=== PATIENT | female | born 1945 | race Caucasian/White ===

== ENCOUNTER 2019-03-05 13:26 | Outpatient (CLI) | payer MEDICARE, BC ==
[~2019-03-05] VITALS: Ht 152.4 cm; Wt 62.3 kg
[2019-03-05 14:12] LABS: BASOPHILS # (AUTO) 0.03 x10^3/uL (0-0.1); BASOPHILS % (AUTO) 0 % (0-1); EOSINOPHILS # (AUTO) 0.12 x10^3/uL (0-0.4); EOSINOPHILS % (AUTO) 2 % (1-7); LYMPHOCYTES # (AUTO) 2.06 x10^3/uL (1-3.4); LYMPHOCYTES % (AUTO) 29 % (22-44); MD NO; MEAN CORPUSCULAR HEMOGLOBIN 29.8 pg (27.0-34.8); MEAN CORPUSCULAR VOLUME 90.1 fL (80-100); MEAN PLATELET VOLUME 8.2 fL (7.4-10.4); MONOCYTES # (AUTO) 0.47 x10^3/uL (0.2-0.8); MONOCYTES % (AUTO) 7 % (2-9); NEUTROPHILS # (AUTO) 4.41 x10^3/uL (1.8-6.8); NEUTROPHILS % (AUTO) 62 % (42-75); PLATELET COUNT 269 x10^3/uL (130-400); RED BLOOD COUNT 4.84 x10^6/uL (3.82-5.3); RED CELL DISTRIBUTION WIDTH 13.6 % (9.6-15.2)
[2019-03-05] MEDS ORDERED: LEVO175T2 PO (14:14)
[2019-03-05] MEDS ORDERED: ESTR1TAB15 PO (14:14)
[2019-03-05] MEDS ORDERED: CLOP75TA PO (14:14)
[2019-03-05] MEDS ORDERED: LIOT5TAB11 PO (14:14)
[2019-03-05] MEDS ORDERED: IBUP1TAB11 PO (14:14)
[2019-03-05 14:21] LABS: CREATININE 0.74 mg/dL (0.55-1.02); INTERNATIONAL NORMALIZED RATIO 0.91 (0.93-1.1); PROTHROMBIN TIME 9.6 Seconds (9.6-11.5)
== END 2019-03-05 23:59 | disposition home or self-care (01) ==
LOC: STAR 13:26
PROVIDERS: ATTEND Surgery
DX: Z01.810 Encounter for preprocedural cardiovascular examination (principal); I35.1 Nonrheumatic aortic (valve) insufficiency; I73.9 Peripheral vascular disease, unspecified; Z79.01 Long term (current) use of anticoagulants
CPT/HCPCS: 36415; 82565; 84520; 85025; 85610; 85730

== ENCOUNTER → 2019-03-23 | Outpatient (CLI) | payer MEDICARE, BC ==
[~2019-03-23] MED LIST: CLOP75TA PO; ESTR1TAB15 PO; IBUP1TAB11 PO; LEVO175T2 PO; LIOT5TAB11 PO; LISI-167 PO
[2019-03-23 15:19] LABS: BASOPHILS # (AUTO) 0.02 x10^3/uL (0-0.1); BASOPHILS % (AUTO) 0 % (0-1); EOSINOPHILS # (AUTO) 0.14 x10^3/uL (0-0.4); EOSINOPHILS % (AUTO) 2 % (1-7); LYMPHOCYTES # (AUTO) 1.86 x10^3/uL (1-3.4); LYMPHOCYTES % (AUTO) 30 % (22-44); MD NO; MEAN CORPUSCULAR HEMOGLOBIN 29.8 pg (27.0-34.8); MEAN CORPUSCULAR HGB CONC 33.5 g/dL (32.4-35.8); MEAN CORPUSCULAR VOLUME 88.9 fL (80-100); MEAN PLATELET VOLUME 8.3 fL (7.4-10.4); MONOCYTES # (AUTO) 0.51 x10^3/uL (0.2-0.8); MONOCYTES % (AUTO) 8 % (2-9); NEUTROPHILS # (AUTO) 3.68 x10^3/uL (1.8-6.8); NEUTROPHILS % (AUTO) 59 % (42-75); PLATELET COUNT 255 x10^3/uL (130-400); RED BLOOD COUNT 4.85 x10^6/uL (3.82-5.3); RED CELL DISTRIBUTION WIDTH 13.3 % (9.6-15.2)
[2019-03-23 15:27] LABS: ALANINE AMINOTRANSFERASE 28 U/L (12-78); ALBUMIN 3.6 g/dL (3.4-5.0); ANION GAP 5 mmol/L (5-15); CALCIUM 9.6 mg/dL (8.5-10.1); CHLORIDE 111 mmol/L (98-107)
[2019-03-23 15:29] LABS: ALKALINE PHOSPHATASE 77 U/L (45-117); BILIRUBIN,TOTAL 0.2 mg/dL (0.2-1.0); TOTAL PROTEIN 7.1 g/dL (6.4-8.2)
== END | disposition home or self-care (01) ==
LOC: STAR 14:16
PROVIDERS: ATTEND Surgery
DX: Z01.818 Encounter for other preprocedural examination (principal); I35.1 Nonrheumatic aortic (valve) insufficiency; I73.9 Peripheral vascular disease, unspecified; Z88.0 Allergy status to penicillin
CPT/HCPCS: 36415; 80053; 85025; 93005

== ENCOUNTER 2019-04-19 14:53 | Inpatient (IN) | payer MEDICARE, BC ==
[~2019-04-19] VITALS: Ht 152.4 cm; Wt 59.0 kg
[~2019-04-19 14:53] MED LIST changes: +HYDR-3240 PO; +ONDA4TAB7 PO
[2019-04-19] MEDS ORDERED: SODIUM CHLORIDE FLUSH 10ML SYR IVF ONE (16:30)
[2019-04-19] MEDS ORDERED: ONDANSETRON 2MG/ML, 2ML IVPush ONE (16:30)
[2019-04-19 17:23] LABS: BASOPHILS # (AUTO) 0.02 x10^3/uL (0-0.1); BASOPHILS % (AUTO) 0 % (0-1); EOSINOPHILS # (AUTO) 0.02 x10^3/uL (0-0.4); EOSINOPHILS % (AUTO) 0 % (1-7); LYMPHOCYTES # (AUTO) 1.31 x10^3/uL (1-3.4); LYMPHOCYTES % (AUTO) 8 % (22-44); MD NO; MEAN CORPUSCULAR HEMOGLOBIN 29.9 pg (27.0-34.8); MEAN CORPUSCULAR HGB CONC 33.5 g/dL (32.4-35.8); MEAN CORPUSCULAR VOLUME 89.3 fL (80-100); MEAN PLATELET VOLUME 7.3 fL (7.4-10.4); MONOCYTES # (AUTO) 0.66 x10^3/uL (0.2-0.8); MONOCYTES % (AUTO) 4 % (2-9); NEUTROPHILS # (AUTO) 14.58 x10^3/uL (1.8-6.8); NEUTROPHILS % (AUTO) 88 % (42-75); PLATELET COUNT 681 x10^3/uL (130-400)
[2019-04-19 17:33] LABS: ALBUMIN 3.2 g/dL (3.4-5.0); ANION GAP 8 mmol/L (5-15); CALCIUM 9.3 mg/dL (8.5-10.1); CHLORIDE 101 mmol/L (98-107)
[2019-04-19 17:37] LABS: ALANINE AMINOTRANSFERASE 42 U/L (12-78); ALKALINE PHOSPHATASE 122 U/L (45-117); BILIRUBIN,TOTAL 0.7 mg/dL (0.2-1.0); CREATININE 0.73 mg/dL (0.55-1.02); TOTAL PROTEIN 7.5 g/dL (6.4-8.2)
--- NOTE | 2019-04-19 18:53 | NUR ---
pt to room from lobby
--- NOTE | 2019-04-19 19:05 | NUR ---
PT. TO ED WITH C/O NAUSEA/VOMITING TODAY. AT THIS TIME PT. DENIES NAUSEA AND STATES LAST EPISODE OF VOMITING WAS IN THE LOBBY 1 HOUR AGO. PT. HAD A OPEN ABD SURGERY FOR ARTERY REPAIR ON 04/[address] JAVED. LARGE ABD INCISION WITH [facility], ALSO HAS BILAT INGUNIAL [facility]. PEDAL PULSES STONG BILAT. AT BS WITH PT. CONTINUOUS PULSE OX AND B/P MONITORS PLACED. CALL LIGHT IN REACH.
[2019-04-19] MEDS ORDERED: SODIUM CHLORIDE 0.9% 1,000 ML IV ONE ×2 (19:21→21:39)
[2019-04-19] MEDS ORDERED: SODIUM CHLORIDE 0.9% 1,000ML IVBOLUS ONE (19:30)
[2019-04-19] MEDS ORDERED: ONDANSETRON 2MG/ML, 2ML ONE (19:32)
--- NOTE | 2019-04-19 20:46 | NUR ---
PT. REPORTS FEELING BETTER AFTER NAUSEA MEDS. STATES IS STARTING TO FEEL HUNGRY; NPO STATUS DISCUSSED AND PT. VERBALIZED UNDERSTANDING. PT. TO CT VIA [employer]. PT. DID AMBULATE TO BR WITH STEADY GAIT TO PROVIDE URINE SAMPLE. SENT TO LAB.
[2019-04-19] MEDS ORDERED: OMNIPAQUE 350 MG/ML, 100ML BOTTLE ONE (20:48)
[2019-04-19 21:01] LABS: MICROSCOPIC AUTO
[2019-04-19 21:02] LABS: CULTURE INDICATED? YES
[2019-04-19] MEDS ORDERED: CEFTRIAXONE PMX 1GM/50ML 50 ML IVPB ONE (21:30)
--- NOTE | 2019-04-19 21:39 | NUR ---
HOT TEA PROVIDED TO PT. PER OK FROM DR. CRUZ. PT. AGREEABLE WITH POC FOR ADMISSION. 2 SETS OF BLOOD CULTURES HAVE BEEN DRAWN. IV ABX TO BE ADMINISTERED. PT. DENIES OTHER NEEDS AT THIS TIME.
[2019-04-19] MEDS ORDERED: CEFTRIAXONE PMX 1GM/50ML 50 ML ONE (21:46)
[2019-04-19] MEDS ORDERED: SODIUM CHLORIDE FLUSH 10ML SYR IVF PRN (22:00)
[2019-04-19] MEDS ORDERED: SODIUM CHLORIDE 0.9% 1,000 ML IV SCH (23:07)
[2019-04-19] MEDS: CEFTRIAXONE PMX 1GM/50ML 50 ML IV SCH (23:14)
[2019-04-19] MEDS ORDERED: BISACODYL 10 MG SUPP PR PRN (23:30)
[2019-04-19] MEDS ORDERED: ONDANSETRON 4 MG TABLET PO PRN (23:30)
[2019-04-19] MEDS ORDERED: HYDROcodone/APAP 5/325 TABLET PO PRN (23:30)
[2019-04-19] MEDS ORDERED: ACETAMINOPHEN 325 MG TABLET PO PRN (23:30)
[2019-04-19] MEDS ORDERED: ONDANSETRON ODT 4 MG PO PRN (23:30)
[2019-04-19] MEDS ORDERED: POLYETHYLENE GLYCOL 17 GM PACKET PO PRN (23:30)
[2019-04-20] MEDS ORDERED: ONDANSETRON 2MG/ML, 2ML ONE (00:12)
[2019-04-20] MEDS ORDERED: PROMETHAZINE 25 MG/ML, 1ML ONE (00:25)
[2019-04-20] MEDS: PROMETHAZINE 25 MG/ML, 1ML IM PRN ×5 (00:27→19:44)
--- NOTE | 2019-04-20 00:34 | NUR ---
PT. CONTINUED TO C/O NAUSEA, WAS MEDICATED WITH ZOFRAN, TOOK 1 DRINK OF SPRITE AND STARTED VOMITING AGAIN. DISCUSSED WITH DOMINIQUE CHAMBERS AND NEW ORDERS RECEIVED; PT. AGAIN MEDICATED PER MAR FOR NAUSEA.
[2019-04-20 01:19] VITALS: BP 165/82
[2019-04-20] MEDS: NS + 20MEQ KCL 1,000 ML IV SCH ×3 (02:44→23:55)
[2019-04-20 05:25] LABS: ANION GAP 7 mmol/L (5-15); CALCIUM 8.1 mg/dL (8.5-10.1); CHLORIDE 104 mmol/L (98-107); CREATININE 0.51 mg/dL (0.55-1.02)
[2019-04-20 05:27] LABS: BASOPHILS # (AUTO) 0.01 x10^3/uL (0-0.1); BASOPHILS % (AUTO) 0 % (0-1); EOSINOPHILS # (AUTO) 0.02 x10^3/uL (0-0.4); EOSINOPHILS % (AUTO) 0 % (1-7); LYMPHOCYTES # (AUTO) 1.05 x10^3/uL (1-3.4); LYMPHOCYTES % (AUTO) 7 % (22-44); MD NO; MEAN CORPUSCULAR HEMOGLOBIN 29.8 pg (27.0-34.8); MEAN CORPUSCULAR HGB CONC 33.4 g/dL (32.4-35.8); MEAN CORPUSCULAR VOLUME 89.3 fL (80-100); MEAN PLATELET VOLUME 7.6 fL (7.4-10.4); MONOCYTES # (AUTO) 0.72 x10^3/uL (0.2-0.8); MONOCYTES % (AUTO) 5 % (2-9); NEUTROPHILS # (AUTO) 12.49 x10^3/uL (1.8-6.8); NEUTROPHILS % (AUTO) 87 % (42-75); PLATELET COUNT 558 x10^3/uL (130-400); RED BLOOD COUNT 3.69 x10^6/uL (3.82-5.3); RED CELL DISTRIBUTION WIDTH 13.7 % (9.6-15.2)
[2019-04-20] MEDS ORDERED: LEVOTHYROXINE 175 MCG TABLET PO SCH (06:00)
[2019-04-20 06:35] VITALS: BP 167/84
[2019-04-20] MEDS: LIOTHYRONINE 5 MCG TABLET PO SCH (08:39)
[2019-04-20] MEDS: ESTRADIOL 1 MG TABLET PO SCH (08:39)
[2019-04-20] MEDS: LISINOPRIL 10 MG TABLET PO SCH (08:39)
[2019-04-20] MEDS: SENNA/DOCUSATE TABLET PO SCH (08:39)
[2019-04-20] MEDS: CLOPIDOGREL 75 MG TABLET PO SCH (08:40)
[2019-04-20 13:52] VITALS: BP 161/76
[2019-04-20] MEDS: ONDANSETRON 2MG/ML, 2ML IVPush PRN ×2 (16:03→20:03)
[2019-04-20] MEDS ORDERED: ENALAPRILAT 1.25 MG/ML, 1ML IV PRN (19:30)
[2019-04-20 19:31] VITALS: BP 166/63
[2019-04-20] MEDS: CEFTRIAXONE PMX 1GM/50ML 50 ML IV SCH (23:15)
[2019-04-21 00:41] VITALS: BP 161/71
[2019-04-21] MEDS: PROMETHAZINE 25 MG/ML, 1ML IM PRN (00:41)
[2019-04-21] MEDS: ONDANSETRON 2MG/ML, 2ML IVPush PRN ×6 (00:41→22:17)
[2019-04-21 05:39] LABS: BASOPHILS # (AUTO) 0.02 x10^3/uL (0-0.1); BASOPHILS % (AUTO) 0 % (0-1); EOSINOPHILS # (AUTO) 0.06 x10^3/uL (0-0.4); EOSINOPHILS % (AUTO) 1 % (1-7); LYMPHOCYTES # (AUTO) 1.17 x10^3/uL (1-3.4); LYMPHOCYTES % (AUTO) 12 % (22-44); MD NO; MEAN CORPUSCULAR HEMOGLOBIN 29.6 pg (27.0-34.8); MEAN CORPUSCULAR HGB CONC 33.4 g/dL (32.4-35.8); MEAN CORPUSCULAR VOLUME 88.7 fL (80-100); MEAN PLATELET VOLUME 7.3 fL (7.4-10.4); MONOCYTES # (AUTO) 0.66 x10^3/uL (0.2-0.8); MONOCYTES % (AUTO) 7 % (2-9); NEUTROPHILS # (AUTO) 8.18 x10^3/uL (1.8-6.8); NEUTROPHILS % (AUTO) 81 % (42-75); PLATELET COUNT 583 x10^3/uL (130-400); RED BLOOD COUNT 3.95 x10^6/uL (3.82-5.3); RED CELL DISTRIBUTION WIDTH 13.6 % (9.6-15.2)
[2019-04-21 05:52] LABS: ALANINE AMINOTRANSFERASE 30 U/L (12-78); ALBUMIN 2.8 g/dL (3.4-5.0); ANION GAP 6 mmol/L (5-15); CALCIUM 8.3 mg/dL (8.5-10.1); CHLORIDE 103 mmol/L (98-107)
[2019-04-21 05:54] LABS: ALKALINE PHOSPHATASE 101 U/L (45-117); BILIRUBIN,TOTAL 0.5 mg/dL (0.2-1.0); TOTAL PROTEIN 6.6 g/dL (6.4-8.2)
[2019-04-21] MEDS: LEVOTHYROXINE 125 MCG TABLET PO SCH (06:10)
[2019-04-21 06:35] VITALS: BP 171/76
[2019-04-21 08:05] VITALS: BP 168/74
[2019-04-21] MEDS: ESTRADIOL 1 MG TABLET PO SCH (09:14)
[2019-04-21] MEDS: LIOTHYRONINE 5 MCG TABLET PO SCH (09:14)
[2019-04-21] MEDS: SENNA/DOCUSATE TABLET PO SCH (09:15)
[2019-04-21] MEDS: CLOPIDOGREL 75 MG TABLET PO SCH (09:15)
[2019-04-21] MEDS: LISINOPRIL 10 MG TABLET PO SCH (09:15)
[2019-04-21] MEDS: NS + 20MEQ KCL 1,000 ML IV SCH ×2 (10:05→18:44)
[2019-04-21 14:00] VITALS: BP 169/76
[2019-04-21 20:06] VITALS: BP 169/71
[2019-04-21] MEDS: CEFTRIAXONE PMX 1GM/50ML 50 ML IV SCH (23:22)
[2019-04-22 01:54] VITALS: BP 136/76
[2019-04-22 05:20] LABS: ANION GAP 8 mmol/L (5-15); CALCIUM 8.4 mg/dL (8.5-10.1); CHLORIDE 105 mmol/L (98-107)
[2019-04-22] MEDS: NS + 20MEQ KCL 1,000 ML IV SCH (05:20)
[2019-04-22 05:21] LABS: CREATININE 0.52 mg/dL (0.55-1.02)
[2019-04-22 05:30] LABS: MEAN CORPUSCULAR HEMOGLOBIN 29.6 pg (27.0-34.8); MEAN CORPUSCULAR VOLUME 89.7 fL (80-100); MEAN PLATELET VOLUME 7.6 fL (7.4-10.4); PLATELET COUNT 571 x10^3/uL (130-400); RED BLOOD COUNT 4.06 x10^6/uL (3.82-5.3)
[2019-04-22] MEDS: LEVOTHYROXINE 125 MCG TABLET PO SCH (05:45)
[2019-04-22 05:54] LABS: BASOPHILS # (AUTO) 0.03 x10^3/uL (0-0.1); BASOPHILS % (AUTO) 0 % (0-1); EOSINOPHILS # (AUTO) 0.18 x10^3/uL (0-0.4); EOSINOPHILS % (AUTO) 2 % (1-7); LYMPHOCYTES # (AUTO) 1.45 x10^3/uL (1-3.4); LYMPHOCYTES % (AUTO) 13 % (22-44); MD SCAN; MONOCYTES # (AUTO) 0.85 x10^3/uL (0.2-0.8); MONOCYTES % (AUTO) 8 % (2-9); NEUTROPHILS # (AUTO) 8.54 x10^3/uL (1.8-6.8); NEUTROPHILS % (AUTO) 77 % (42-75)
[2019-04-22 06:30] VITALS: BP 160/82
[2019-04-22] MEDS ORDERED: ONDA4TAB13 PO (09:03)
[2019-04-22] MEDS ORDERED: LEVO125T5 PO (09:03)
[2019-04-22] MEDS ORDERED: SULF1TAB24 PO (09:03)
[2019-04-22] MEDS: ESTRADIOL 1 MG TABLET PO SCH (09:16)
[2019-04-22] MEDS: SENNA/DOCUSATE TABLET PO SCH (09:16)
[2019-04-22] MEDS: CLOPIDOGREL 75 MG TABLET PO SCH (09:17)
[2019-04-22] MEDS: LIOTHYRONINE 5 MCG TABLET PO SCH (09:17)
[2019-04-22] MEDS: LISINOPRIL 10 MG TABLET PO SCH (09:18)
== END 2019-04-22 10:55 | disposition home or self-care (01) | DRG 872 ==
LOC: ED 22:51 → EDIP 04-20 → 4NE 04-20 01:04 → DCLOUNGE 04-22 10:48
PROVIDERS: ADMIT Hospitalist; ATTEND Hospitalist
DX: A41.9 Sepsis, unspecified organism (principal); N13.6 Pyonephrosis; E87.1 Hypo-osmolality and hyponatremia; E44.0 Moderate protein-calorie malnutrition; B96.20 Unspecified Escherichia coli [E. coli] as the cause of diseases classified elsewhere; E03.9 Hypothyroidism, unspecified; E86.0 Dehydration; E87.6 Hypokalemia; H54.7 Unspecified visual loss; K57.30 Diverticulosis of large intestine without perforation or abscess without bleeding; I10 Essential (primary) hypertension; I73.9 Peripheral vascular disease, unspecified; K59.00 Constipation, unspecified; Z66 Do not resuscitate; Z82.49 Family history of ischemic heart disease and other diseases of the circulatory system; Z79.01 Long term (current) use of anticoagulants; Z79.899 Other long term (current) drug therapy; Z88.0 Allergy status to penicillin; Z88.8 Allergy status to other drugs, medicaments and biological substances; Z86.718 Personal history of other venous thrombosis and embolism; Z68.25 Body mass index [BMI] 25.0-25.9, adult
CPT/HCPCS: 36415; 74021; 74177; 80048; 80053; 81001; 83605; 83735; 84439; 84443; 84481; 85025; 87040; 87077; 87086; 87186; 96361; 96365; 96375; G0378; J0696; J2405; J2550; J3480; Q0162; Q9967; J7030